=== PATIENT | female | born 1955 | race Caucasian/White ===

== ENCOUNTER 2023-08-25 06:03 | Day surgery (SDC) | payer BC, MEDICARE ==
[2023-08-25] MEDS ORDERED: fentaNYL 100 MCG/2 ML SDV ONE (06:16)
[2023-08-25] MEDS ORDERED: Midazolam 1 MG/ML 2 ML SDV ONE (06:16)
[2023-08-25] MEDS: Dextrose 5%-0.45% NaCl 1,000 ML IV SCH (06:33)
[2023-08-25] MEDS: fentaNYL 100 MCG/2 ML SDV IV ONE ×6 (06:57→07:28)
[2023-08-25] MEDS: Midazolam 1 MG/ML 2 ML SDV IV ONE ×7 (06:58→07:38)
== END 2023-08-25 09:15 | disposition home or self-care (01) ==
LOC: DL.ENDO 06:03
PROVIDERS: ATTEND Internal Medicine Gastroenterology
DX: D12.0 Benign neoplasm of cecum (principal); D12.3 Benign neoplasm of transverse colon; K64.8 Other hemorrhoids; K57.30 Diverticulosis of large intestine without perforation or abscess without bleeding; E78.5 Hyperlipidemia, unspecified; I10 Essential (primary) hypertension; F17.210 Nicotine dependence, cigarettes, uncomplicated; Z98.890 Other specified postprocedural states; Z88.5 Allergy status to narcotic agent
CPT/HCPCS: 45385; J2250; J3010; J7042